=== PATIENT | male | born 1985 | race Hispanic/Latino ===

== ENCOUNTER → 2018-09-28 | Outpatient (CLI) | payer BC ==
[~2018-09-28] MED LIST: GADOBENATE DIMEGLUMINE 1 ML IV ONE
--- NOTE | 2018-10-03 11:16 | Diagnostic Imaging Report ---
EXAM: MRI of the abdomen with and without contrast. INDICATION: Right upper quadrant mass. COMPARISON: None. TECHNIQUE: Multiplanar and multisequence imaging was performed of the abdomen, without and with administration of 20 cc of MultiHance. DISCUSSION: LOWER THORAX: Unremarkable. HEPATOBILIARY: Diffuse loss of signal on out of phase images, representing hepatic steatosis. No focal hepatic lesions. No biliary ductal dilation. GALLBLADDER: No radio-opaque stones or sludge. No wall thickening. SPLEEN: No splenomegaly. PANCREAS: No focal masses or ductal dilatation. ADRENALS: No adrenal nodules KIDNEYS/URETERS: Kidneys enhance symmetrically. No hydronephrosis. No renal mass. Right renal inferior pole 1.3 cm cyst. GI TRACT: Visualized bowel loops are unremarkable. No evidence of bowel obstruction. LYMPH NODES: No lymphadenopathy. VESSELS: Unremarkable. PERITONEUM / RETROPERITONEUM: No free air or fluid. BONES: Unremarkable. SOFT TISSUES: Approximately 6.6 x 2.3 cm right upper quadrant subcutaneous lesion with internal fat density (series 4, image 47). IMPRESSION: Hepatic steatosis. 6.6 x 2.3 cm right upper quadrant subcutaneous fat density lesion, representing a lipoma. Otherwise, no abnormality visualized in right upper quadrant. Signed by: Dr. Phill Blair MD on 10/03/2018 11:12 AM
== END ==
LOC: MRI 07:33
PROVIDERS: ATTEND Internal Medicine Gastroenterology
DX: R19.01 Right upper quadrant abdominal swelling, mass and lump (principal)
CPT/HCPCS: 74183; A9577